=== PATIENT | male | born 1960 | race Caucasian/White ===

== ENCOUNTER → 2017-12-22 | Outpatient (CLI) | payer OTHER | END | disposition home or self-care (01) | LOC: OIH 12:42 | PROVIDERS: ATTEND Internal Medicine Cardiovascular Disease | DX: Z13.6 Encounter for screening for cardiovascular disorders (principal) | CPT/HCPCS: 75571 ==

== ENCOUNTER 2019-08-09 13:04 | Emergency (ER) | payer BC, OTHER ==
[2019-08-09 13:39] LABS: EOSINOPHILS % (AUTO) 0.9 % (0.0-8.0); HEMATOCRIT 39.9 % (42-54); LYMPHOCYTES % (AUTO) 16.8 % (21.0-51.0); MEAN CORPUSCULAR HEMOGLOBIN 36.7 pg (27.0-33.0); MEAN CORPUSCULAR HGB CONC 35.7 g/dL (32.0-36.0); MEAN CORPUSCULAR VOLUME 102.8 fL (79-99); MONOCYTES % (AUTO) 7.3 % (3.0-13.0); PLATELET COUNT (AUTO) 265 K/uL (130-400); RED BLOOD CELL COUNT(AUTO) 3.89 MIL/uL (4.50-6.20); WHITE BLOOD COUNT (AUTO) 11.6 K/uL (4.8-10.8)
[2019-08-09] MEDS ORDERED: SODIUM CHLORIDE 0.9% 1000ML 1,000 ML IV ONE (13:52)
[2019-08-09 13:53] LABS: ALBUMIN 3.7 g/dL (3.5-5.0); BILIRUBIN,TOTAL 0.5 mg/dL (0.2-1.0); CREATININE 1.1 mg/dL (0.5-1.5); POTASSIUM 3.3 mmol/L (3.5-5.1); TOTAL PROTEIN, SERUM 7.4 g/dL (6.0-8.3)
[2019-08-09 14:02] LABS: APPEARANCE,URINE Clear (CLEAR); BILIRUBIN,URINE Negative (NEGATIVE); COLOR,URINE Yellow (YELLOW); GLUCOSE, URINE (UA) Negative (NEGATIVE); KETONES,URINE Trace mg/dL (NEGATIVE); LEUKOCYTE ESTERASE ,URINE Negative (NEGATIVE); NITRATE,URINE Negative (NEGATIVE); OCCULT BLOOD,URINE Negative (NEGATIVE); PROTEIN,URINE Negative (NEGATIVE)
[2019-08-09 14:11] LABS: BACTERIA,URINE Rare /HPF (None Seen); MUCUS,URINE Few LPF (None Seen); RBC,URINE 0-1 /HPF (0-1); SQUAMOUS EPITHELIAL CELL,UR Rare /HPF (0-2)
[2019-08-09 14:23] LABS: PHOSPHORUS 3.2 mg/dL (2.5-4.9)
[2019-08-09] MEDS ORDERED: THIAMINE HCL 100 MG/ML 2ML VIAL ONE (15:09)
[2019-08-09] MEDS ORDERED: CEFTRIAXONE SODIUM 1 GM ONE (15:09)
[2019-08-09] MEDS ORDERED: MAGNESIUM 2GM PREMIX 50ML 50 ML IV ONE (15:09)
[2019-08-09] MEDS ORDERED: POTASSIUM BICARB/CIT AC 25 MEQ TABLET.EFF ONE (15:09)
[2019-08-09] MEDS ORDERED: CLONIDINE HCL 0.1 MG TABLET ONE (15:47)
[2019-08-09] MEDS ORDERED: ONDANSETRON ODT 4 MG TAB ONE (15:47)
== END 2019-08-09 16:41 | disposition home or self-care (01) ==
LOC: EDH 13:04
DX: N39.0 Urinary tract infection, site not specified (principal); E87.1 Hypo-osmolality and hyponatremia; E87.6 Hypokalemia; E83.42 Hypomagnesemia; F10.10 Alcohol abuse, uncomplicated; R20.2 Paresthesia of skin; I10 Essential (primary) hypertension; Z79.899 Other long term (current) drug therapy; Z98.890 Other specified postprocedural states
CPT/HCPCS: 36415; 80053; 81001; 82607; 82746; 83735; 84100; 84443; 85025; 87088; 93005; 96361; 96365; 96368; 96375; 99285; J0696; J3411; J3475; J7030

== ENCOUNTER 2021-01-19 11:01 | Inpatient (IN) | payer BC ==
[~2021-01-19] VITALS: Ht 185.4 cm; Wt 98.9 kg
[2021-01-19 11:55] LABS: ALBUMIN 2.9 g/dL (3.5-5.0); BILIRUBIN,TOTAL 1.2 mg/dL (0.2-1.0); CREATININE 1.3 mg/dL (0.5-1.5); TOTAL PROTEIN, SERUM 6.1 g/dL (6.0-8.3)
[2021-01-19 11:57] LABS: POTASSIUM 2.9 mmol/L (3.5-5.1)
[2021-01-19 12:00] LABS: BASOPHILS % (AUTO) 0.3 % (0.0-5.0); EOSINOPHILS % (AUTO) 1.6 % (0.0-8.0); HEMATOCRIT 30.4 % (42-54); LYMPHOCYTES % (AUTO) 13.2 % (21.0-51.0); MEAN CORPUSCULAR HEMOGLOBIN 37.3 pg (27.0-33.0); MEAN CORPUSCULAR HGB CONC 37.5 g/dL (32.0-36.0); MEAN CORPUSCULAR VOLUME 99.3 fL (79-99); MONOCYTES % (AUTO) 4.8 % (3.0-13.0); NEUTROPHILS % (AUTO) 79.7 % (40.0-77.0); PLATELET COUNT (AUTO) 223 K/uL (130-400); RED BLOOD CELL COUNT(AUTO) 3.06 MIL/uL (4.50-6.20); RED CELL DISTRIBUTION WIDTH 12.1 % (11.0-15.5); WHITE BLOOD COUNT (AUTO) 11.6 K/uL (4.8-10.8)
[2021-01-19] MEDS ORDERED: POTASSIUM CHLORIDE 40 MEQ in SODIUM CHLORIDE 0.9% 1000ML 1,000 ML IV SCH (12:30)
[2021-01-19] MEDS ORDERED: ACETAMINOPHEN 650 MG SUPPOSITORY RC PRN (16:30)
[2021-01-19] MEDS: SODIUM CHLORIDE 0.9% 1000ML 1,000 ML IV SCH (16:30)
[2021-01-19] MEDS ORDERED: SODIUM CHLORIDE 0.9% 1000ML 1,000 ML IV ONE (16:30)
[2021-01-19] MEDS ORDERED: LIDOCAINE HCL-MPF 1% 2ML VIAL IV PRN ×2 (16:45)
[2021-01-19] MEDS ORDERED: POTASSIUM CHLORIDE 20MEQ/100ML 100 ML IV PRN ×2 (16:45)
[2021-01-19 17:44] LABS: AMPHET/METH SCREEN,URINE NEGATIVE (NEGATIVE); BARBITURATE SCREEN, URINE NEGATIVE (NEGATIVE); BENZODIAZEPINES SCREEN,URINE POSITIVE (NEGATIVE); CANNABINOID SCREEN,URINE POSITIVE (NEGATIVE); COCAINE SCREEN,URINE NEGATIVE (NEGATIVE); OPIATE SCREEN,URINE NEGATIVE (NEGATIVE); PHENCYCLIDINE SCREEN,URINE NEGATIVE (NEGATIVE)
[2021-01-19 17:45] LABS: AMMONIA 15 umol/L (11-32); CREATINE KINASE, TOTAL 50 U/L (21-232); MYOGLOBIN 90 ng/mL (10-92); TROPONIN I < 0.04 ng/mL (0.00-0.06)
[2021-01-19 17:46] LABS: POTASSIUM 3.9 mmol/L (3.5-5.1)
[2021-01-19 17:52] LABS: CREATININE 1.4 mg/dL (0.5-1.5)
[2021-01-19 18:03] LABS: APPEARANCE,URINE Clear (CLEAR); BILIRUBIN,URINE Negative (NEGATIVE); COLOR,URINE Yellow (YELLOW); GLUCOSE, URINE (UA) Negative (NEGATIVE); KETONES,URINE Negative (NEGATIVE); LEUKOCYTE ESTERASE ,URINE Trace (NEGATIVE); NITRATE,URINE Negative (NEGATIVE); OCCULT BLOOD,URINE Negative (NEGATIVE); PH,URINE 6.5 (5.0-8.0); PROTEIN,URINE Negative (NEGATIVE)
[2021-01-19 18:11] LABS: RBC,URINE 0-1 /HPF (0-1)
[2021-01-19 18:12] LABS: BACTERIA,URINE Rare /HPF (None Seen); HYALINE CASTS, URINE 0-1 /LPF (0-1 /LPF); SQUAMOUS EPITHELIAL CELL,UR Rare /HPF (0-2)
[2021-01-19] MEDS ORDERED: CEFTRIAXONE SODIUM 1 GM ONE (18:17)
[2021-01-19] MEDS ORDERED: LORAZEPAM 2 MG/ML 1 ML VIAL IVP PRN (21:45)
[2021-01-19] MEDS ORDERED: CHLORDIAZEPOXIDE HCL 25 MG CAP PO ONE (22:00)
[2021-01-19] MEDS ORDERED: CHLORDIAZEPOXIDE HCL 25 MG CAP ONE (22:18)
[2021-01-19] MEDS ORDERED: LORAZEPAM 2 MG/ML 1 ML VIAL ONE (22:19)
[2021-01-19 22:57] LABS: CREATININE 1.5 mg/dL (0.5-1.5); POTASSIUM 3.6 mmol/L (3.5-5.1)
[2021-01-19 23:14] LABS: CREATINE KINASE, TOTAL 34 U/L (21-232); MYOGLOBIN 92 ng/mL (10-92); TROPONIN I < 0.04 ng/mL (0.00-0.06)
[2021-01-20] VITALS (7 sets, daily range): BP systolic 97–157; BP diastolic 33–74
[2021-01-20] MEDS: SODIUM CHLORIDE 0.9% 1000ML 1,000 ML IV SCH ×3 (01:14→16:48)
[2021-01-20 05:23] LABS: BASOPHILS % (AUTO) 0.4 % (0.0-5.0); EOSINOPHILS % (AUTO) 2.8 % (0.0-8.0); HEMATOCRIT 25.4 % (42-54); LYMPHOCYTES % (AUTO) 13.8 % (21.0-51.0); MEAN CORPUSCULAR HEMOGLOBIN 37.3 pg (27.0-33.0); MEAN CORPUSCULAR HGB CONC 37.4 g/dL (32.0-36.0); MEAN CORPUSCULAR VOLUME 99.6 fL (79-99); MONOCYTES % (AUTO) 7.7 % (3.0-13.0); NEUTROPHILS % (AUTO) 74.9 % (40.0-77.0); PLATELET COUNT (AUTO) 171 K/uL (130-400); RED BLOOD CELL COUNT(AUTO) 2.55 MIL/uL (4.50-6.20); RED CELL DISTRIBUTION WIDTH 12.1 % (11.0-15.5); WHITE BLOOD COUNT (AUTO) 7.2 K/uL (4.8-10.8)
[2021-01-20 05:30] LABS: HEMOGLOBIN A1C 4.5 % (4.0-6.0)
[2021-01-20 06:14] LABS: CREATINE KINASE, TOTAL 50 U/L (21-232); MYOGLOBIN 139 ng/mL (10-92); TROPONIN I < 0.04 ng/mL (0.00-0.06)
[2021-01-20 06:25] LABS: CARBON DIOXIDE 24 mmol/L (21-32); CHLORIDE 91 mmol/L (101-111); CREATININE 1.5 mg/dL (0.5-1.5); GLOMERULAR FILTR. RATE CALC 51 mL/min (>60); GLUCOSE,RANDOM 89 mg/dL (70-105); PHOSPHORUS 2.3 mg/dL (2.5-4.9); POTASSIUM 3.4 mmol/L (3.5-5.1); SODIUM SERUM 125 mmol/L (136-145); UREA NITROGEN, BLOOD 13 mg/dL (7-18)
[2021-01-20] MEDS ORDERED: ACYCLOVIR 200 MG CAPSULE PO SCH (09:00)
[2021-01-20] MEDS: PANTOPRAZOLE SODIUM 40 MG TABLET.DR PO SCH (09:24)
[2021-01-20] MEDS: FOLIC ACID 1 MG TABLET PO SCH (09:24)
[2021-01-20] MEDS: THIAMINE HCL 100 MG TABLET PO SCH (09:24)
[2021-01-20] MEDS: ENOXAPARIN SODIUM 40 MG/0.4 ML SYRINGE SQ SCH (09:25)
[2021-01-20] MEDS: ACYCLOVIR 800 MG TABLET PO SCH ×4 (09:25→22:17)
[2021-01-20] MEDS: POTASSIUM CHLORIDE 10% ELIXIR 20 MEQ/15 ML UDCUP PO PRN ×3 (09:29→13:37)
[2021-01-20] MEDS: MAGNESIUM 2GM PREMIX 50ML 50 ML IV PRN (09:30)
[2021-01-20] MEDS: CHLORDIAZEPOXIDE HCL 25 MG CAP PO SCH (21:21)
[2021-01-21] MEDS: SODIUM CHLORIDE 0.9% 1000ML 1,000 ML IV SCH ×2 (00:21→09:49)
[2021-01-21] MEDS: ALPRAZOLAM 0.5 MG TABLET ONE ×3 (03:05→03:31)
[2021-01-21 04:02] VITALS: BP 114/58
[2021-01-21 04:58] LABS: CREATININE 1.2 mg/dL (0.5-1.5); MAGNESIUM 1.3 mg/dL (1.80-2.40); POTASSIUM 3.4 mmol/L (3.5-5.1)
[2021-01-21 08:00] VITALS: BP 163/78
[2021-01-21] MEDS: ALPRAZOLAM 0.5 MG TABLET PO SCH ×3 (09:00→21:11)
[2021-01-21] MEDS: CHLORDIAZEPOXIDE HCL 25 MG CAP PO SCH ×2 (09:48→21:11)
[2021-01-21] MEDS: ACYCLOVIR 800 MG TABLET PO SCH ×3 (09:48→21:11)
[2021-01-21] MEDS: FOLIC ACID 1 MG TABLET PO SCH (09:48)
[2021-01-21] MEDS: THIAMINE HCL 100 MG TABLET PO SCH (09:48)
[2021-01-21] MEDS: PANTOPRAZOLE SODIUM 40 MG TABLET.DR PO SCH (09:48)
[2021-01-21] MEDS: ENOXAPARIN SODIUM 40 MG/0.4 ML SYRINGE SQ SCH (09:49)
[2021-01-21] MEDS: MAGNESIUM 2GM PREMIX 50ML 50 ML IV PRN (10:49)
[2021-01-21] MEDS: POTASSIUM CHLORIDE 10% ELIXIR 20 MEQ/15 ML UDCUP PO PRN (10:57)
[2021-01-21 12:00] VITALS: BP 127/64
[2021-01-21 16:00] VITALS: BP 145/67
[2021-01-21 20:34] VITALS: BP 158/93
[2021-01-21] MEDS: SODIUM CHLORIDE 1,000 MG TAB PO SCH (21:11)
[2021-01-21 23:39] VITALS: BP 136/87
[2021-01-22 03:52] VITALS: BP 135/54
[2021-01-22 05:31] LABS: HEMATOCRIT 26.3 % (42-54); MEAN CORPUSCULAR HGB CONC 34.6 g/dL (32.0-36.0); MEAN CORPUSCULAR VOLUME 106.9 fL (79-99); RED BLOOD CELL COUNT(AUTO) 2.46 MIL/uL (4.50-6.20); RED CELL DISTRIBUTION WIDTH 12.7 % (11.0-15.5); WHITE BLOOD COUNT (AUTO) 4.7 K/uL (4.8-10.8)
[2021-01-22 05:40] LABS: CREATININE 0.9 mg/dL (0.5-1.5); MAGNESIUM 1.7 mg/dL (1.80-2.40); POTASSIUM 3.5 mmol/L (3.5-5.1)
[2021-01-22] MEDS: MAGNESIUM 2GM PREMIX 50ML 50 ML IV PRN (06:46)
[2021-01-22 08:33] VITALS: BP 187/95
[2021-01-22] MEDS: ALPRAZOLAM 0.5 MG TABLET PO SCH ×2 (09:40→20:24)
[2021-01-22] MEDS: POTASSIUM CHLORIDE 20 MEQ ERTAB PO PRN ×2 (09:40→11:39)
[2021-01-22] MEDS: CHLORDIAZEPOXIDE HCL 25 MG CAP PO SCH ×2 (09:40→20:24)
[2021-01-22] MEDS: THIAMINE HCL 100 MG TABLET PO SCH (09:40)
[2021-01-22] MEDS: PANTOPRAZOLE SODIUM 40 MG TABLET.DR PO SCH (09:40)
[2021-01-22] MEDS: FOLIC ACID 1 MG TABLET PO SCH (09:40)
[2021-01-22] MEDS: ACYCLOVIR 800 MG TABLET PO SCH ×3 (09:40→20:24)
[2021-01-22] MEDS: SODIUM CHLORIDE 1,000 MG TAB PO SCH (09:40)
[2021-01-22] MEDS: ENOXAPARIN SODIUM 40 MG/0.4 ML SYRINGE SQ SCH (09:41)
[2021-01-22] MEDS ORDERED: LOSARTAN 100 MG TABLET PO SCH (11:30)
[2021-01-22] MEDS: ACETAMINOPHEN 325 MG TAB PO PRN (15:17)
[2021-01-22] MEDS ORDERED: AMLODIPINE BESYLATE 5 MG TAB PO SCH (16:00)
[2021-01-22 17:18] VITALS: BP 152/76
[2021-01-22] MEDS ORDERED: ALPR0.5T PO (17:34)
[2021-01-22] MEDS ORDERED: LOSA100T58 PO (17:34)
[2021-01-22 20:04] VITALS: BP 129/52
[2021-01-22 23:48] VITALS: BP 123/66
[2021-01-23 04:15] VITALS: BP 133/85
[2021-01-23 05:34] LABS: ALBUMIN 2.6 g/dL (3.5-5.0); BILIRUBIN,DIRECT 0.4 mg/dL (0.0-0.3); BILIRUBIN,TOTAL 0.7 mg/dL (0.2-1.0); POTASSIUM 3.9 mmol/L (3.5-5.1); TOTAL PROTEIN, SERUM 5.4 g/dL (6.0-8.3)
[2021-01-23 08:00] VITALS: BP 181/88
[2021-01-23] MEDS: ALPRAZOLAM 0.5 MG TABLET PO SCH (08:09)
[2021-01-23] MEDS: CHLORDIAZEPOXIDE HCL 25 MG CAP PO SCH (08:09)
[2021-01-23] MEDS: FOLIC ACID 1 MG TABLET PO SCH (08:10)
[2021-01-23] MEDS: ENOXAPARIN SODIUM 40 MG/0.4 ML SYRINGE SQ SCH (08:10)
[2021-01-23] MEDS: THIAMINE HCL 100 MG TABLET PO SCH (08:11)
[2021-01-23] MEDS: PANTOPRAZOLE SODIUM 40 MG TABLET.DR PO SCH (08:12)
[2021-01-23] MEDS: ACETAMINOPHEN 325 MG TAB PO PRN (08:32)
[2021-01-23] MEDS: ACYCLOVIR 800 MG TABLET PO SCH (09:00)
[2021-01-23] MEDS ORDERED: AMLODIPINE BESYLATE 5 MG TAB PO SCH (09:00)
[2021-01-23] MEDS ORDERED: LOSARTAN 100 MG TABLET PO SCH (09:00)
[2021-01-23 14:40] VITALS: BP 126/76
== END 2021-01-23 16:09 | DRG 683 ==
LOC: EDH 11:01 → EDHIP 16:24 → OBSVTOIN 16:24 → 4CH 23:45
PROVIDERS: ADMIT Internal Medicine Critical Care Medicine; ATTEND Internal Medicine Critical Care Medicine
DX: N17.9 Acute kidney failure, unspecified (principal); E87.1 Hypo-osmolality and hyponatremia; E86.0 Dehydration; E66.9 Obesity, unspecified; B02.9 Zoster without complications; Z68.36 Body mass index [BMI] 36.0-36.9, adult; Z20.822 Contact with and (suspected) exposure to COVID-19; F41.9 Anxiety disorder, unspecified; I10 Essential (primary) hypertension; E87.6 Hypokalemia; E83.42 Hypomagnesemia; Z98.84 Bariatric surgery status
CPT/HCPCS: 36415; 71045; 80048; 80053; 80076; 80305; 81001; 82140; 82550; 82948; 83036; 83605; 83735; 83874; 84100; 84443; 84484; 85025; 85027; 87040; 87426; 93005; 97039; G0378; J0696; J1650; J2060; J3475; J3480; J7030; U0003

== ENCOUNTER → 2024-03-02 | Outpatient (CLI) | payer OTHER ==
[~2024-03-02] MED LIST: ALPR0.5T PO; LOSA100T59 PO
== END | disposition home or self-care (01) ==
LOC: OIH 11:01
PROVIDERS: ATTEND Nurse Practitioner Family
DX: Z13.6 Encounter for screening for cardiovascular disorders (principal); R94.31 Abnormal electrocardiogram [ECG] [EKG]
CPT/HCPCS: 75571